=== PATIENT | female | born 1955 | race Caucasian/White ===

== ENCOUNTER 2022-06-10 17:34 | Inpatient (IN) | payer OTHER ==
[~2022-06-10] VITALS: Ht 157.5 cm; Wt 66.9 kg
[2022-06-10 17:38] VITALS: BP 138/73
[2022-06-10 17:51] LABS: BASOPHILS % (AUTO) 0.2 % (0.0-2.0); EOSINOPHILS % (AUTO) 0.1 % (0.0-4.0); HEMATOCRIT 33.1 % (36-48); HEMOGLOBIN 10.6 g/dL (12.0-16.0); LYMPHOCYTES # (AUTO) 0.9 K/uL (2.5-16.5); LYMPHOCYTES % (AUTO) 5.9 % (20.5-51.1); MEAN CORPUSCULAR HEMOGLOBIN 23 pg (27-31); MEAN CORPUSCULAR HGB CONC 32 g/dL (33-37); MEAN CORPUSCULAR VOLUME 71.3 fL (80-94); MONOCYTES # (AUTO) 0.8 K/uL (0.8-1.0); MONOCYTES % (AUTO) 5.3 % (1.7-9.3); NEUTROPHILS # (AUTO) 12.8 K/uL (1.8-7.7); NEUTROPHILS % (AUTO) 88.5 % (42.2-75.2); PLATELET COUNT (AUTO) 381 K/uL (140-450); RED BLOOD CELL COUNT(AUTO) 4.65 MIL/uL (4.20-5.40); RED CELL DISTRIBUTION WIDTH 17.2 % (11.6-13.7); WHITE BLOOD COUNT (AUTO) 14.5 K/uL (4.8-10.8)
--- NOTE | 2022-06-10 18:00 | NUR ---
patient to radiology
[2022-06-10 18:07] LABS: ALBUMIN 4.2 g/dL (3.4-5.0); CARBON DIOXIDE 23.4 mmol/L (21-32); CREATININE 2.1 mg/dL (0.6-1.3); POTASSIUM 4.4 mmol/L (3.5-5.1); TOTAL BILIRUBIN 0.4 mg/dL (0.0-1.0)
[2022-06-10] MEDS ORDERED: MORPHINE SULFATE 4 MG/ML SYR IVP ONE (19:20)
[2022-06-10] MEDS ORDERED: fentaNYL citrate 0.05 MG/ML VIAL IVP ONE (20:05)
--- NOTE | 2022-06-10 20:20 | NUR ---
Pt c/o left hip pain, ERMD made aware and orders received.
--- NOTE | 2022-06-10 20:52 | NUR ---
COVID SWAB COLLECTED AND SENT TO LAB
[2022-06-10 20:57] LABS: PROTHROMBIN TIME 9.8 secs (10.8-13.4)
[2022-06-10] MEDS ORDERED: guaiFENesin DM 200/20 MG-10 ML 10 ML UDC PO PRN (21:10)
[2022-06-10] MEDS ORDERED: ACETAMINOPHEN 325 MG TAB PO PRN (21:10)
[2022-06-10] MEDS ORDERED: ONDANSETRON 4 MG/2 ML VIAL IM/IVP PRN (21:10)
[2022-06-10] MEDS ORDERED: DOCUSATE SODIUM 100 MG GELCAP PO PRN (21:10)
[2022-06-10] MEDS ORDERED: POTASSIUM CHLORIDE 10 MEQ TABER PO PRN (21:10)
[2022-06-10 21:48] LABS: CHOL/HDL RATIO 2.3 (1-4.5); FREE T4 (FREE THYROXINE) 1.49 ng/dL (0.76-1.46); MAGNESIUM 2.2 mg/dL (1.8-2.4); PHOSPHORUS 5.9 mg/dL (2.5-4.9); THYROID STIMULATING HORMONE 0.04 uIU/mL (0.34-3.74)
[2022-06-10] MEDS: DEXT 5% /NACL 0.9% 1,000 ML IV SCH (22:01)
[2022-06-10] MEDS ORDERED: MORPHINE SULFATE 4 MG/ML SYR ONE (22:31)
--- NOTE | 2022-06-10 22:35 | NUR ---
c/o 10/ left hip pain prn pain medication given as ordered
[2022-06-10] MEDS: MORPHINE SULFATE 2 MG/ML SYR IVP PRN (22:43)
--- NOTE | 2022-06-10 23:30 | NUR ---
Report given to Darryl VINCENT
[2022-06-11 00:25] VITALS: BP 112/67
[2022-06-11] MEDS: ZOLPIDEM 5 MG TAB PO PRN (00:31)
[2022-06-11] MEDS: HYDROcodone/APAP 7.5/325 MG 1 TAB PO PRN (00:32)
[2022-06-11 04:00] VITALS: BP 118/65
[2022-06-11] MEDS: DEXT 5% /NACL 0.9% 1,000 ML IV SCH ×2 (06:37→17:10)
[2022-06-11] MEDS: MORPHINE SULFATE 2 MG/ML SYR IVP PRN ×4 (06:44→19:51)
[2022-06-11 07:04] LABS: BASOPHILS % (AUTO) 0.6 % (0.0-2.0); EOSINOPHILS # (AUTO) 0.1 K/uL (0-0.4); HEMATOCRIT 28.7 % (36-48); HEMOGLOBIN 9.4 g/dL (12.0-16.0); LYMPHOCYTES # (AUTO) 1.6 K/uL (2.5-16.5); LYMPHOCYTES % (AUTO) 22.3 % (20.5-51.1); MEAN CORPUSCULAR HEMOGLOBIN 23 pg (27-31); MEAN CORPUSCULAR HGB CONC 33 g/dL (33-37); MEAN CORPUSCULAR VOLUME 70.5 fL (80-94); MONOCYTES # (AUTO) 0.7 K/uL (0.8-1.0); MONOCYTES % (AUTO) 10.3 % (1.7-9.3); NEUTROPHILS # (AUTO) 4.8 K/uL (1.8-7.7); NEUTROPHILS % (AUTO) 65.8 % (42.2-75.2); PLATELET COUNT (AUTO) 318 K/uL (140-450); RED BLOOD CELL COUNT(AUTO) 4.07 MIL/uL (4.20-5.40); RED CELL DISTRIBUTION WIDTH 17.2 % (11.6-13.7); WHITE BLOOD COUNT (AUTO) 7.3 K/uL (4.8-10.8)
[2022-06-11 07:23] LABS: ANION GAP 16.6 (8-16); CARBON DIOXIDE 23.4 mmol/L (21-32); CREATININE 1.4 mg/dL (0.6-1.3)
--- NOTE | 2022-06-11 07:49 | NUR ---
got report from the night nurse, pt is crying for pain.[email or web address]
[2022-06-11] MEDS ORDERED: HYDROmorphone 1 MG/ML AMP IVP STA (07:53)
[2022-06-11] MEDS ORDERED: HYDROmorphone 1 MG/ML AMP ONE (07:57)
[2022-06-11 08:00] VITALS: BP 111/63
[2022-06-11] MEDS ORDERED: HYDROmorphone 1 MG/ML AMP IVP PRN (08:30)
--- NOTE | 2022-06-11 09:18 | NUR ---
PATIENT HAS BEEN SCREENED AND CATEGORIZED LOW NUTRITION RISK. PATIENT WILL BE SEEN WITHIN 7 DAYS OF ADMISSION. 06/17/[address] BY PADDY [address]ON[address]
[2022-06-11] MEDS: methIMAzole 5 MG TAB PO SCH (09:25)
[2022-06-11] MEDS: PANTOPRAZOLE 40 MG TABEC PO SCH (09:25)
[2022-06-11 12:00] VITALS: BP 129/64
--- NOTE | 2022-06-11 12:05 | NUR ---
DC PLANNING ASSESSMENT COMPLETE PLEASE REFER TO ASSESSMENT FOR ADDITIONAL DETAILS PT REQUESTING SW CALL HER CAREGIVER BILLIE, AND MARKIE SULLIVAN [phone] TO NOTIFY THEM OF HER STAY. PT REPORTS HAVING A SECTION 8 INSPECTION AND BECAME TEARFUL SHE IS NOT HOME FOR INSPECTION THAT IS TO OCCUR 06/15. SW OUTREACHED TO BOTH CONTACTS HOWEVER, NO ANSWER. SW LEFT MESSAGES FOR BOTH CONTACTS REQUESTING A RETURN PHONE CALL. PT REPORTS TENTATIVE DC PLAN ON PHYSICIAN RECOMMENDATIONS. Addendum: 06/12/22 at 0859 by Chano GUZMAN Amended: Links added. Addendum: 06/12/22 at 1324 by Chano GUZMAN OUTREACHED TO PTS CAREGIVER, BILLIE. BILLIE REPORTS BEING IN TOUCH WITH MS COYLE AND IS AWARE PT IS ADMITTED. BILLIE REQUESTING PT CALL HER ONCE OUT OF SURGERY AND IS ALERT AND ORIENTED, SO THEY CAN FIGURE OUT WHO HAS TURNER TO APT. STEPHANIE ENDORSED TO PT NURSE AND PROVIDED NURSE WITH BILLIE, CONTACT INFO.
[2022-06-11 16:00] VITALS: BP 114/52
--- NOTE | 2022-06-11 18:32 | NUR ---
DR SEAY SAID PT CAN BE NPO until 5am for the surgery 2pm tomorrow, PT IS NOT NPO NOW HAD DINNER, AND SNACK.[id number]
[2022-06-11 20:00] VITALS: BP 126/53
[2022-06-12] VITALS: BP 134/61
--- NOTE | 2022-06-12 00:02 | NUR ---
INCONTINENT OF URINE, PERINEAL CARE RENDERED, MADE COMFORTABLE IN BED. VITAL SIGNS TAKEN AND DOCUMENTED, WITHIN NORMAL LIMITS. COMPLAINING OF LEFT HIP PAIN, MEDICATED ORDERED
--- NOTE | 2022-06-12 02:10 | NUR ---
ROUNDING DONE. PATIENT IS ASLEEP. BREATHING EVEN AND UNLABORED. CALL LIGHT WITHIN REACH.
[2022-06-12] MEDS: DEXT 5% /NACL 0.9% 1,000 ML IV SCH ×3 (02:41→19:21)
[2022-06-12 04:00] VITALS: BP 120/68
[2022-06-12] MEDS: MORPHINE SULFATE 2 MG/ML SYR IVP PRN (04:49)
--- NOTE | 2022-06-12 04:54 | NUR ---
INCONTINENT OF URINE, AM CARE RENDERED. MADE COMFORTABLE IN BED. PAIN MEDICATION GIVEN. CALL LIGHT WITHIN REACH.
--- NOTE | 2022-06-12 06:34 | NUR ---
PATIENT IS ASLEEP. NO DISTRESS NOTED. ALL NEEDS ATTENDED TO. SAFETY PRECAUTIONS MAINTAINED DURING THE SHIFT, CALL LIGHT REMAINS WITHIN REACH.
[2022-06-12 06:50] LABS: BASOPHILS % (AUTO) 0.2 % (0.0-2.0); HEMATOCRIT 26.1 % (36-48); HEMOGLOBIN 8.5 g/dL (12.0-16.0); LYMPHOCYTES % (AUTO) 11.2 % (20.5-51.1); MEAN CORPUSCULAR HEMOGLOBIN 23 pg (27-31); MEAN CORPUSCULAR HGB CONC 33 g/dL (33-37); MEAN CORPUSCULAR VOLUME 70.2 fL (80-94); MONOCYTES # (AUTO) 1.1 K/uL (0.8-1.0); MONOCYTES % (AUTO) 12.1 % (1.7-9.3); NEUTROPHILS # (AUTO) 7.1 K/uL (1.8-7.7); NEUTROPHILS % (AUTO) 76.5 % (42.2-75.2); PLATELET COUNT (AUTO) 267 K/uL (140-450); RED BLOOD CELL COUNT(AUTO) 3.72 MIL/uL (4.20-5.40); RED CELL DISTRIBUTION WIDTH 17.7 % (11.6-13.7); WHITE BLOOD COUNT (AUTO) 9.3 K/uL (4.8-10.8)
[2022-06-12 06:54] LABS: ANION GAP 9.9 (8-16); CARBON DIOXIDE 25.8 mmol/L (21-32); CREATININE 0.9 mg/dL (0.6-1.3); POTASSIUM 3.7 mmol/L (3.5-5.1)
[2022-06-12] MEDS ORDERED: MORPHINE SULFATE 4 MG/ML SYR IVP PRN ×2 (07:20)
[2022-06-12 08:07] LABS: T4 (THYROXINE) 10.7 ug/dL (4.5-12.0)
[2022-06-12] MEDS: PANTOPRAZOLE 40 MG TABEC PO SCH ×2 (09:00→09:52)
[2022-06-12] MEDS: methIMAzole 5 MG TAB PO SCH (09:53)
[2022-06-12] MEDS ORDERED: BUPIVACAINE-MPF/EPI 0.25% 30 ML VIAL INJ ONE ×2 (13:19→16:52)
--- NOTE | 2022-06-12 13:30 | NUR ---
TEMP AT THIS TIME 101F, OR PERSONNEL HERE TO TURBINE INSPECTOR PATIENT FOR SURGERY. iNFORMED THEM OF CHANGE IN TEMPERATURE FROM 98.7 TO 101F, PATIENT NOT 5TAKEN TO OR, WILL REASSESS FURTHER AND SURGEON WILL BE NOTIFIED. pATIENT'S MEDICATIONS NOT GIVEN THIS AM FOR npo STATUS 1430 pATIENT TAKEN TO O0R AT THIS TIME, SURGEON CLEARED PATIENT FOR or. TEMP 97.9
[2022-06-12] MEDS ORDERED: ceFAZolin 2,000 MG VIAL ONE (14:42)
[2022-06-12] MEDS ORDERED: DEXAMETHASONE 4 MG/ML VIAL ONE (15:34)
[2022-06-12] MEDS ORDERED: fentaNYL citrate 0.05 MG/ML VIAL ONE (15:34)
[2022-06-12] MEDS ORDERED: ONDANSETRON 4 MG/2 ML VIAL ONE (15:34)
[2022-06-12] MEDS ORDERED: PROPOFOL 200 MG/20 ML VIAL IV ONE (15:34)
[2022-06-12] MEDS ORDERED: ACETAMINOPHEN 100 ML IV ONE (15:43)
[2022-06-12] MEDS ORDERED: HYDROmorphone PFS 2 MG/ML SYR ONE (15:50)
[2022-06-12] MEDS ORDERED: LABETALOL 20 MG/4 ML VIAL IVP ONE (16:17)
[2022-06-12 17:11] VITALS: BP 112/54
[2022-06-12] MEDS ORDERED: HYDROmorphone 1 MG/ML AMP IVP PRN (17:15)
[2022-06-12] MEDS ORDERED: ONDANSETRON 4 MG/2 ML VIAL IVP PRN (17:15)
--- NOTE | 2022-06-12 19:30 | NUR ---
RECEIVED PT IN BED AWAKE, ALERT AND ORIENTED. DENIES PAIN AT THIS TIME. NO ACUTE RESPIRATORY DISTRESS NOTED. DRESSING IN THE LEFT HIP CDI. SKIN WARM AND DRY TO TOUCH. SAFETY PRECAUTIONS IN PLACE, CALL LIGHT IN REACH.
--- NOTE | 2022-06-12 19:43 | NUR ---
1814 patient back from OR in no acute distress.essing on her surgical site left hip dry and intact, patient ate dinner with fair appetite. No c/o pain noted
[2022-06-12 20:00] VITALS: BP 95/57
[2022-06-13] VITALS: BP 100/61
--- NOTE | 2022-06-13 00:15 | NUR ---
TRIED TO INSERT ARAMBULA CATHETER BUT UNSUCCESSFUL.
--- NOTE | 2022-06-13 02:29 | NUR ---
FMD TEACHER INSERTED ARAMBULA CATHETER NO OUTPUT NOTED, WILL MONITOR.
[2022-06-13] MEDS: HYDROmorphone 1 MG/ML AMP IVP PRN ×2 (02:35→09:00)
--- NOTE | 2022-06-13 02:50 | NUR ---
CALL PLACED TO DR. ZAVALA REGARDING NO OUTPUT FROM ARAMBULA CATHETER INSERTED. AWAITING CALL BACK.
[2022-06-13 04:00] VITALS: BP 105/58
--- NOTE | 2022-06-13 04:45 | NUR ---
FOLLOW UP CALL PLACED TO DR. ZAVALA. AWAITING CALL BACK. PATIENT DENIES URGE TO URINATE. AM CARE RENDERED. MADE COMFORTABLE IN BED. CALL LIGHT IN REACH.
[2022-06-13] MEDS: DEXT 5% /NACL 0.9% 1,000 ML IV SCH ×2 (05:19→19:39)
--- NOTE | 2022-06-13 06:09 | NUR ---
DR. GARSIA, ER MD AND SUPERVISOR PIPE MANUFACTURE CAME TO EVALUATE ARAMBULA CATHETER THAT WAS PLACED EARLIER, PER ER MD NOT IN PLACE, DID ULTRASOUND OF THE BLADDER PER MD NOT MUCH URINE. TRIED TO RE INSERT BY ANOTHER RN, PAU BUT STILL UNSUCCESSFUL. INFORMED DR. ZAVALA. NEW ORDER GIVEN, DR. LOWRY CONSULT. WILL CARRY OUT.
--- NOTE | 2022-06-13 06:23 | NUR ---
PATIENT IS ASLEEP. NO DISTRESS NOTED. ALL NEEDS ATTENDED TO. SAFETY PRECAUTIONS IN PLACE, CALL LIGHT IN REACH.
[2022-06-13 06:33] LABS: BASOPHILS % (AUTO) 0.1 % (0.0-2.0); HEMATOCRIT 22.7 % (36-48); HEMOGLOBIN 7.5 g/dL (12.0-16.0); LYMPHOCYTES # (AUTO) 0.8 K/uL (2.5-16.5); LYMPHOCYTES % (AUTO) 9.8 % (20.5-51.1); MEAN CORPUSCULAR HEMOGLOBIN 23 pg (27-31); MEAN CORPUSCULAR HGB CONC 33 g/dL (33-37); MEAN CORPUSCULAR VOLUME 70.4 fL (80-94); MONOCYTES # (AUTO) 0.8 K/uL (0.8-1.0); MONOCYTES % (AUTO) 9.5 % (1.7-9.3); NEUTROPHILS # (AUTO) 6.7 K/uL (1.8-7.7); NEUTROPHILS % (AUTO) 80.6 % (42.2-75.2); PLATELET COUNT (AUTO) 214 K/uL (140-450); RED BLOOD CELL COUNT(AUTO) 3.22 MIL/uL (4.20-5.40); RED CELL DISTRIBUTION WIDTH 18.3 % (11.6-13.7); WHITE BLOOD COUNT (AUTO) 8.3 K/uL (4.8-10.8)
[2022-06-13 06:46] LABS: ANION GAP 10.4 (8-16); CARBON DIOXIDE 24.5 mmol/L (21-32); CREATININE 0.9 mg/dL (0.6-1.3); POTASSIUM 3.9 mmol/L (3.5-5.1)
[2022-06-13 08:00] VITALS: BP 100/53
--- NOTE | 2022-06-13 08:00 | NUR ---
rECEIVED AWAKE, REPOSITIONED TO CENTER OF THE BED FOR COMFORT. bp VSS. wITH SLIGHT DISCHARGE NOTED ON THE LEFT HIP DRESSING. c/o PAIN ON SURGICAL SITE. mEDICATED ACCORDINGLY
--- NOTE | 2022-06-13 08:00 | NUR ---
rECEIVED AWAKE, IN NO ACUTE DISTRESS. iNCONTINENT OF STOOL. rEPOSITIOED FOR COMFORT aTE WITH POOR APPETITE. hob MAINTAINED ELEVATED AT ALL TIMES. 02 SAT AT 97%
[2022-06-13] MEDS: methIMAzole 5 MG TAB PO SCH (08:52)
--- NOTE | 2022-06-13 10:00 | NUR ---
pATIENT INCONTINENT OF URINE IN LARGE AMOUNT, STATED SHE FEELS BETTER AFTER VOIDING
--- NOTE | 2022-06-13 11:00 | NUR ---
dAUGHTER CAME AND UPDATED WITH PATIENT'S STATUS. pATIENT REPOSITIONED TO SIDES FOR COMFORT. rESTING WELL
--- NOTE | 2022-06-13 11:08 | NUR ---
P.T. NOTES P.T. EVAL COMPLETED; REFER TO EVAL FOR DETAILS.
[2022-06-13] MEDS: HYDROcodone/APAP 7.5/325 MG 1 TAB PO PRN ×3 (12:23→23:26)
[2022-06-13 16:00] VITALS: BP 106/56
--- NOTE | 2022-06-13 19:35 | NUR ---
RECEIVED PT IN BED AWAKE, ALERT AND ORIENTED. DENIES PAIN AT THIS TIME. NO ACUTE RESPIRATORY DISTRESS NOTED. LEFT HIP DRESSING CDI. IV CHANGED TO THE LEFT WRIST GAUGE 20 X 1 ATTEMPT, PREVIOUS IV INFILTRATED, REMOVED WITH INTACT CANNULA. SKIN WARM AND DRY TO TOUCH. SAFETY PRECAUTIONS IN PLACE, CALL LIGHT IN REACH, ENCOURAGED TO CALL IF ASSISTANCE IS NEEDED, PT VERBALY ACKNOWLEDGED.
[2022-06-13 20:00] VITALS: BP 94/55
--- NOTE | 2022-06-13 23:00 | NUR ---
INCONTINENT OF URINE, PERINEAL CARE RENDERED. MADE COMFORTABLE IN BED.
[2022-06-14 00:05] VITALS: BP 94/53
--- NOTE | 2022-06-14 01:21 | NUR ---
ROUNDING DONE PT ASLEEP. BREATHING EVEN AND UNLABORED. CALL LIGHT WITHIN REACH.
[2022-06-14] MEDS: ZOLPIDEM 5 MG TAB PO PRN ×2 (01:24→21:31)
[2022-06-14 04:00] VITALS: BP 114/61
[2022-06-14] MEDS: DEXT 5% /NACL 0.9% 1,000 ML IV SCH ×3 (04:40→19:30)
--- NOTE | 2022-06-14 05:30 | NUR ---
REFUSED AM CARE, PER PT SHE IS CLEAN. INSTRUCTED PT TO CALL IF ASSISTANCE IS NEEDED.
[2022-06-14 06:20] LABS: BASOPHILS % (AUTO) 0.3 % (0.0-2.0); EOSINOPHILS # (AUTO) 0.1 K/uL (0-0.4); EOSINOPHILS % (AUTO) 1.8 % (0.0-4.0); HEMATOCRIT 22.5 % (36-48); HEMOGLOBIN 7.3 g/dL (12.0-16.0); LYMPHOCYTES # (AUTO) 1.8 K/uL (2.5-16.5); LYMPHOCYTES % (AUTO) 31.6 % (20.5-51.1); MEAN CORPUSCULAR HEMOGLOBIN 23 pg (27-31); MEAN CORPUSCULAR HGB CONC 32 g/dL (33-37); MEAN CORPUSCULAR VOLUME 70.8 fL (80-94); MONOCYTES # (AUTO) 0.6 K/uL (0.8-1.0); MONOCYTES % (AUTO) 10.5 % (1.7-9.3); NEUTROPHILS # (AUTO) 3.1 K/uL (1.8-7.7); NEUTROPHILS % (AUTO) 55.8 % (42.2-75.2); PLATELET COUNT (AUTO) 237 K/uL (140-450); RED BLOOD CELL COUNT(AUTO) 3.17 MIL/uL (4.20-5.40); RED CELL DISTRIBUTION WIDTH 18.7 % (11.6-13.7); WHITE BLOOD COUNT (AUTO) 5.6 K/uL (4.8-10.8)
[2022-06-14 06:53] LABS: ANION GAP 11.1 (8-16); CARBON DIOXIDE 24.9 mmol/L (21-32); CREATININE 0.8 mg/dL (0.6-1.3)
[2022-06-14 08:00] VITALS: BP 117/63
--- NOTE | 2022-06-14 08:00 | NUR ---
NURSE REPORT REPORT OBTAINED FROM NIGHT NURSE ANY AND THIS NURSE ASSUMED CARE OF PATIENT. VSS. AFEB. NO C/O PAIN. TEIV D5NS INFUSING AT 100 ML/HR INTO L WRIST. TELE WITH SR. Addendum: 06/14/22 at 1933 by Agency 04 RN RN CORRECTION: IV D5NS INFUSING AT 100 ML/HR.
[2022-06-14] MEDS: PANTOPRAZOLE 40 MG TABEC PO SCH (08:14)
[2022-06-14] MEDS: methIMAzole 5 MG TAB PO SCH (08:15)
[2022-06-14] MEDS: HYDROcodone/APAP 7.5/325 MG 1 TAB PO PRN ×2 (09:51→19:35)
--- NOTE | 2022-06-14 10:51 | NUR ---
NURSE NOTES MEDICATED FOR PAIN WITH NORCO 7.5/325 1 TAB WITH SOME RELIEF. HAVE PAIN AFTER BEING CLEANSED BEING INCONTINENT OF STOOL.
[2022-06-14 12:00] VITALS: BP 104/53
[2022-06-14] MEDS: HYDROmorphone 1 MG/ML AMP IVP PRN (12:24)
--- NOTE | 2022-06-14 12:24 | NUR ---
NURSE NOTES VSS. AFEB. C/O PAIN AND MEDICATED WITH DILAUDID 1 MG IVP. TELE WITH SR 85.
[2022-06-14] MEDS ORDERED: TAP5 PO (12:39)
[2022-06-14] MEDS ORDERED: APIX2.5 PO (12:40)
[2022-06-14] MEDS ORDERED: HYDR-5080 PO (12:41)
[2022-06-14 16:00] VITALS: BP 108/59
--- NOTE | 2022-06-14 16:00 | NUR ---
NURSE NOTES VSS. AFEB. NO C/O PAIN OR DISCOMFORT. TELE WITH SR 85.
--- NOTE | 2022-06-14 19:30 | NUR ---
NURSE REPORT REPORT GIVEN TO NIGHT NURSE JOHN TO ASSUME CARE OF PATIENT. ALL QUESTIONS ANSWERED. NITISH FIGUEROA RN
[2022-06-14 20:00] VITALS: BP 127/63
--- NOTE | 2022-06-14 20:00 | NUR ---
SURGICAL DRESSING DRY AND INTACT . WILL CONT. TO MONITOR THERE IS OLD / DRIED BLOOD VIRGIE ON 1ST UPPER DRESSING ON SURGICAL SITE . IN 3CM WIDTH AND 4 CM ON LENGHT - WILL MONITOR
[2022-06-15] VITALS: BP 130/76
--- NOTE | 2022-06-15 01:20 | NUR ---
c/po pain she rates it as 10 , bp 130/76 , rr 18 , o2 sat 98 % - will medicate , call light within reach
[2022-06-15] MEDS: HYDROmorphone 1 MG/ML AMP IVP PRN ×2 (01:22→12:33)
[2022-06-15 04:00] VITALS: BP 122/66
--- NOTE | 2022-06-15 04:00 | NUR ---
ROUNDS . NO S/SX OF ACUTE DISTRESS NOTED , CALL LIGHT WITHIN REACH .
[2022-06-15] MEDS: HYDROcodone/APAP 7.5/325 MG 1 TAB PO PRN ×2 (05:16→18:24)
--- NOTE | 2022-06-15 06:00 | NUR ---
ROUNDS NO COMPLAIN MADE , CALL LIGHT WITHIN REACH .
[2022-06-15 07:06] LABS: BASOPHILS % (AUTO) 0.6 % (0.0-2.0); EOSINOPHILS # (AUTO) 0.2 K/uL (0-0.4); EOSINOPHILS % (AUTO) 2.5 % (0.0-4.0); HEMATOCRIT 22.6 % (36-48); HEMOGLOBIN 7.3 g/dL (12.0-16.0); LYMPHOCYTES # (AUTO) 1.4 K/uL (2.5-16.5); LYMPHOCYTES % (AUTO) 23.7 % (20.5-51.1); MEAN CORPUSCULAR HEMOGLOBIN 23 pg (27-31); MEAN CORPUSCULAR HGB CONC 32 g/dL (33-37); MEAN CORPUSCULAR VOLUME 71.1 fL (80-94); MONOCYTES # (AUTO) 0.5 K/uL (0.8-1.0); MONOCYTES % (AUTO) 8.7 % (1.7-9.3); NEUTROPHILS # (AUTO) 3.9 K/uL (1.8-7.7); NEUTROPHILS % (AUTO) 64.5 % (42.2-75.2); PLATELET COUNT (AUTO) 261 K/uL (140-450); RED BLOOD CELL COUNT(AUTO) 3.18 MIL/uL (4.20-5.40); RED CELL DISTRIBUTION WIDTH 18.3 % (11.6-13.7)
[2022-06-15 07:13] LABS: ANION GAP 11.6 (8-16); CARBON DIOXIDE 21.9 mmol/L (21-32); CREATININE 0.7 mg/dL (0.6-1.3); POTASSIUM 3.5 mmol/L (3.5-5.1)
--- NOTE | 2022-06-15 07:17 | NUR ---
ENDORSED FOR CONT . OF CARE .
--- NOTE | 2022-06-15 07:20 | NUR ---
Received patient from PM Nurse. patient seen, awake watching television. Patient alert and oriented. Plan of care started. Patient care and observation resumed.
[2022-06-15 08:00] VITALS: BP 112/63
[2022-06-15] MEDS: methIMAzole 5 MG TAB PO SCH (09:26)
[2022-06-15] MEDS: PANTOPRAZOLE 40 MG TABEC PO SCH (09:27)
--- NOTE | 2022-06-15 12:30 | NUR ---
PATIENT REPORTED PAIN 7/10. DILAUDED GIVEN.
--- NOTE | 2022-06-15 13:28 | NUR ---
RECEIVED ORDER FOR PATIENT TO GO TO SNF FOR PT. [facility]ED TO [facility], AND [facility]. SPOKE WITH ALLA AT [facility] LOCATED AT [address] [place] [address] AND WILL BE GOING TO ROOM [address] UNDER [address] ZAVALA. TRANSPORTATION WILL BE SET UP WITH [facility] Addendum: 06/15/22 at 150 by Karen Meraz RN DC PLANNING: ARRANGED TRANSPORT WITH [facility] [employer] TIME 1600 NOTIFIED DIANA FLOWER CM TO FOLLOW
--- NOTE | 2022-06-15 13:30 | NUR ---
PATIENT REPORTS NO PAIN.
[2022-06-15 16:00] VITALS: BP 141/76
[2022-06-15 16:32] VITALS: BP 141/76
--- NOTE | 2022-06-15 16:55 | NUR ---
PATIENT REPORTS PAIN AND ASKS FOR ORAL PAIN MEDS. NORCO GIVEN.
[2022-06-15] MEDS ORDERED: GABAPENTIN 300 MG CAP PO SCH (17:00)
--- NOTE | 2022-06-15 17:10 | NUR ---
PATIENT TRANSPORTED TO [facility]
== END 2022-06-15 17:05 | DRG 480 ==
LOC: MED 17:34 → MTU 20:48
PROVIDERS: ADMIT Family Medicine; ATTEND Family Medicine
PROC: 0QS706Z Reposition Left Upper Femur with Intramedullary Internal Fixation Device, Open Approach (ICD-10-PCS; principal; 2022-06-12 14:00)
DX: S72.142A Displaced intertrochanteric fracture of left femur, initial encounter for closed fracture (principal); G93.41 Metabolic encephalopathy; N17.0 Acute kidney failure with tubular necrosis; E87.1 Hypo-osmolality and hyponatremia; I25.10 Atherosclerotic heart disease of native coronary artery without angina pectoris; R74.01 Elevation of levels of liver transaminase levels; J44.9 Chronic obstructive pulmonary disease, unspecified; D63.8 Anemia in other chronic diseases classified elsewhere; W18.39XA Other fall on same level, initial encounter; D72.829 Elevated white blood cell count, unspecified; I11.0 Hypertensive heart disease with heart failure; I50.9 Heart failure, unspecified; Z20.822 Contact with and (suspected) exposure to COVID-19; Z96.641 Presence of right artificial hip joint; Z96.653 Presence of artificial knee joint, bilateral; F31.9 Bipolar disorder, unspecified; Z80.8 Family history of malignant neoplasm of other organs or systems; Z79.899 Other long term (current) drug therapy; Y93.89 Activity, other specified; Y92.89 Other specified places as the place of occurrence of the external cause; Y99.8 Other external cause status
CPT/HCPCS: 36415; 71045; 73502; 76001; 76536; 76770; 80048; 80053; 82150; 83036; 83690; 83735; 83880; 84100; 84436; 84439; 84443; 84479; 84484; 85025; 85610; 85730; 93005; 96374; 96375; 97112; 97116; 97163-GP; 97530; 99285; J0690; J1100; J1170; J1644; J2270; J2405; J2704; J3010; J3490; J7060; Q0092